=== PATIENT | female | born 1975 | race Caucasian/White ===

== ENCOUNTER → 2019-11-12 | Outpatient (CLI) | payer BC | LOC: LAB.O 08:19 | PROVIDERS: ATTEND Nurse Practitioner Obstetrics & Gynecology | DX: Z01.419 Encounter for gynecological examination (general) (routine) without abnormal findings (principal); Z13.220 Encounter for screening for lipoid disorders; Z13.1 Encounter for screening for diabetes mellitus; Z13.29 Encounter for screening for other suspected endocrine disorder ==

== ENCOUNTER → 2019-12-04 | Outpatient (CLI) | payer BC ==
--- NOTE | 2019-12-05 11:53 | MRI ---
EXAM DESCRIPTION: MRI left knee CLINICAL HISTORY: Left knee pain and swelling. Medial knee pain COMPARISON: None. TECHNIQUE: Multiplanar, multisequence MR images of the left knee FINDINGS: Complete root tear posterior horn medial meniscus. Mild subluxation of the body medially. Medial femorotibial chondral thinning and mild surface irregularity. No measurable defect. Mild subchondral cortical irregularity along both sides of the joint with broad regions of marrow edema in the tibial epiphysis and femoral epiphysis. Likely combination of reactive edema related to chondrosis, as well as trabecular stress related edema No lateral meniscal tear. Lateral femorotibial cartilage intact Severe chondrosis of the patella over about 1.7 x 2.2 cm. Thinning and surface irregularity without full-thickness fissuring over the apex and both the medial and lateral facet. Chondral delamination lateral facet with fluid undermining a chondral flap which measures 11 x 9 mm. Subchondral bony irregularity and edema Trochlear cartilage thinning and surface irregularity along the lower medial trochlea, grade 3 ACL, PCL, MCL and fibular collateral limits are intact Biceps femoris, popliteus and iliotibial band tendons are normal. Patellar and quadriceps tendons and tendons of the posterior medial knee are intact Moderate to large joint effusion with mild synovitis. No intra-articular loose body. IMPRESSION: Complete root tear posterior horn medial meniscus Medial femorotibial chondrosis. 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 9 x 11 mm chondral delamination and chondral flap lateral patellar facet Electronically signed by: Elvis Hernandez MD 12/05/2019 11:51 AM CDT
== END ==
LOC: MRI 13:58
PROVIDERS: ATTEND Family Medicine
DX: M23.322 Other meniscus derangements, posterior horn of medial meniscus, left knee (principal); R60.9 Edema, unspecified; M94.262 Chondromalacia, left knee

== ENCOUNTER → 2020-02-05 | Outpatient (CLI) | payer BC | LOC: GMAJ 15:15 | PROVIDERS: ATTEND Family Medicine | DX: R00.2 Palpitations (principal); Z82.49 Family history of ischemic heart disease and other diseases of the circulatory system ==